=== PATIENT | male | born 1955 | race American Indian/Alaskan Native ===

== ENCOUNTER 2016-08-24 09:25 | Day surgery (SDC) | payer BC, OTHER ==
[~2016-08-24 09:25] MED LIST: Lactated Ringers 1,000 ML IV SCH; Sodium Chloride 0.9% 10 ML Syringe FLUSH PRN; Sodium Chloride 0.9% 2.5 ML Syringe FLUSH PRN
[2016-08-24] MEDS ORDERED: Lidocaine 2% 5 ML SDV ONE (09:46)
[2016-08-24] MEDS ORDERED: Propofol 200 MG/20 ML SDV ONE ×5 (09:46→11:06)
--- NOTE | 2016-08-24 09:46 | PCM.PREANE ---
Preanesthetic Assessment - Anesthesia/Transfusion/Family Hx Anesthesia History: Prior Anesthesia Without Reaction Family History of Anesthesia Reaction: No Transfusion History: No Prior Transfusion(s) Intubation History: Unknown - Review of Systems General: No Symptoms Pulmonary: No Symptoms Cardiovascular: No Symptoms Gastrointestinal: No symptoms Neurological: No Symptoms Other: Reports: None - Physical Assessment Height: 1.83 m Weight: 102.965 kg ASA Class: 2 Mental Status: Alert & Oriented x3 Airway Class: Mallampati = 2 Dentition: Reports: Normal Dentition Thyro-Mental Finger Breadths: 3 Mouth Opening Finger Breadths: 3 ROM/Head Extension: Full Lungs: Clear to auscultation, Normal respiratory effort Cardiovascular: Regular Rate, Regular Rhythm - Allergies Allergies/Adverse Reactions: Allergies Allergy/AdvReac Type Severity Reaction Status Date / Time No Known Allergies Allergy Verified 08/21/16 15:02 - Blood Blood Available: No - Anesthesia Plan Pre-Op Medication Ordered: None - Acknowledgements Anesthesia Type Planned: MAC Pt an Appropriate Candidate for the Planned Anesthesia: Yes Alternatives and Risks of Anesthesia Discussed w Pt/Guardian: Yes Pt/Guardian Understands and Agrees with Anesthesia Plan: Yes PreAnesthesia Questionnaire Other HEENT History: wears glasses Cardiovascular History: Reports: Hypertension Respiratory History: Reports: None Gastrointestinal History: Reports: None Genitourinary History: Reports: None Musculoskeletal History: Reports: Other (See Below) Other Musculoskeletal History: repair of laceration to left knee/leg Neurological History: Reports: None Psychiatric History: Reports: None Endocrine/Metabolic History: Reports: Diabetes, Type II, Obesity/BMI 30+ Hematologic History: Reports: None Immunologic History: Reports: None Oncologic (Cancer) History: Reports: None Dermatologic History: Reports: None - Past Surgical History Head Surgeries/Procedures: Reports: None HEENT Surgical History: Reports: None Cardiovascular Surgical History: Reports: None Respiratory Surgical History: Reports: None GI Surgical History: Reports: Appendectomy, Hernia, Inguinal Male Surgical History: Reports: None Endocrine Surgical History: Reports: None Neurological Surgical History: Reports: None Musculoskeletal Surgical History: Reports: None Oncologic Surgical History: Reports: None Dermatological Surgical History: Reports: None, Other (See Below) (repair of laceration behind/bellow left knee) - SUBSTANCE USE Smoking Status *Q: Never Smoker Recreational Drug Use History: No - HOME MEDS Home Medications: Home Meds Chlorthalidone 25 mg PO DAILY 08/21/16 [History] metFORMIN HCl [Metformin HCl ER] 1,500 mg PO QPM 08/21/16 [History] - CURRENT (IN HOUSE) MEDS Current Meds: Current Medications Lactated Ringer's (Ringers, Lactated) 1,000 mls @ 125 mls/hr IV ASDIRECTED LUIS F Sodium Chloride (Saline Flush) 10 ml FLUSH ASDIRECTED PRN PRN Reason: Keep Vein Open Sodium Chloride (Saline Flush) 2.5 ml FLUSH ASDIRECTED PRN PRN Reason: Keep Vein Open
--- NOTE | 2016-08-24 11:34 | PCM.OPNOTE ---
- General Post-Op/Procedure Note Date of Surgery/Procedure: 08/24/16 Operative Procedure(s): 1 ascending colon polyp, one transverse colon polyp, one sigmoid colon polyp, 4 rectal polyps of which 2 where >1 cm in size Findings: 1 ascending colon polyp, one transverse colon polyp, one sigmoid colon polyp, 4 rectal polyps of which 2 where >1 cm in size Pre Op Diagnosis: positive fecal occult blood test Post-Op Diagnosis: 7 colon polyps Anesthesia Technique: [facility] [place] Surgeon: Krysta Weiner Condition: Good Free Text/Narrative:: Intake & Output 08/23/16 08/24/16 08/24/16 22:59 06:59 14:59 Intake Total 75 Balance 75
--- NOTE | 2016-08-24 11:40 | PCM.POSTAN ---
POST ANESTHESIA ASSESSMENT - MENTAL STATUS Mental Status: alert, oriented - RESPIRATORY Respiratory Status: respiratory rate WNL, airway patent, O2 saturation stable - CARDIOVASCULAR CV Status: pulse rate WNL, blood pressure stable - GASTROINTESTINAL GI Status: no symptoms - POST OP HYDRATION Hydration Status: adequate & stable - OBSERVATIONS Free Text/Narrative:: no anesthesia problems
[2016-08-24 11:56] VITALS: BP 123/72
--- NOTE | 2016-08-24 21:27 | OR ---
SURGEON: EKATERINA TOURE MD DATE OF PROCEDURE: 08/24/2016 PREOPERATIVE DIAGNOSIS: Positive fecal occult blood test. POSTOPERATIVE DIAGNOSIS: Multiple colon polyps. PROCEDURE PERFORMED: Diagnostic colonoscopy. INSTRUMENT USED: Olympus colonoscope. ANESTHESIA: MAC. EXTENT OF EXAM: To the cecum. PREPARATION: Good. LIMITATIONS: None. INDICATIONS: The patient is a 61-year-old male, who presents for screening colonoscopy after he had a positive fecal occult blood test. Because of the positive fecal occult blood test, the patient was [place]. The patient denied any changes in his bowel habits. The decision was made to go forward with the procedure. We discussed the procedure as well as expected perioperative course. We discussed the risks, including bleeding, infection, or damage to surrounding structures, including perforation. The patient verbalized understanding and wishes to proceed. PROCEDURE IN DETAIL: The patient was brought into the endoscopy suite and placed in left lateral decubitus position. A time-out was completed verifying the patient's name, age, date of , allergies, and procedure to be performed. Monitored anesthesia care was induced and continuous oxygen was provided via nasal cannula throughout the procedure. After adequate sedation was achieved, a digital rectal exam was performed. This examination was within normal limits. A well lubricated colonoscope was inserted in the rectum and advanced under direct visualization to the level of cecum. The cecum was identified by both visual and anatomic landmarks. A photograph was taken of the cecal cap as well as with the scope retroflexed within the cecum. The scope was then fully withdrawn while examining the color, texture, anatomy, and integrity of the mucosa from the cecum to the anal canal. The patient has had multiple colonic polyps. There was 1 in the ascending colon, 1 in the transverse colon, 1 in the sigmoid colon and 4 in the rectum. The majority of these were able to be removed using a cold biopsy forceps. The 2 largest polyps were in the rectum and labeled as rectal polyp #2 and 3. Rectal polyp #2 was slightly higher in the rectum, but on a pedunculated stalk. This was removed by a snare biopsy and hot snare forceps. Rectal polyp #3 was equally large and on a stalk albeit shorter stalk. This was removed with a snare as well as in piecemeal fashion via a cold biopsy forceps. The scope was retroflexed within the rectum and a photograph taken of the anal canal opening, which appeared normal. The scope was straightened out and removed from the patient. The cecum to anus time was greater than 30 minutes given the large amount of polyps I needed to remove during this procedure. The patient was transferred to the recovery room in stable condition. ENDOSCOPIC DIAGNOSIS: Multiple colon polyps. RECOMMENDATIONS: Follow up in clinic in 2 weeks. The patient should be on fiber and MiraLax for the next 2 weeks to allow him to have soft bowel movements given the multiple polyps removed in the rectum. The patient may need another followup colonoscopy in 1 year. REMI GUTIÉRREZ /[id number]
== END 2016-08-24 12:13 | disposition home or self-care (01) ==
LOC: MW.SDS 09:25
PROVIDERS: ATTEND Surgery
DX: D12.2 Benign neoplasm of ascending colon (principal); D12.3 Benign neoplasm of transverse colon; D12.5 Benign neoplasm of sigmoid colon; D12.8 Benign neoplasm of rectum; I10 Essential (primary) hypertension; Z90.49 Acquired absence of other specified parts of digestive tract; Z79.84 Long term (current) use of oral hypoglycemic drugs; Z79.899 Other long term (current) drug therapy; Z78.9 Other specified health status; Z72.0 Tobacco use
CPT/HCPCS: 45380; 45385; 88305; J7120; J2704

== ENCOUNTER 2017-12-12 17:21 | Emergency (ER) | payer BC, OTHER ==
--- NOTE | 2017-12-12 17:29 | EDM.PDOC ---
<ChinFlavio - Last Filed: 12/12/17 17:26> ED HPI GENERAL MEDICAL PROBLEM - General Chief Complaint: Genitourinary Problem Stated Complaint: UNKNOWN Time Seen by Provider: 12/12/17 17:24 - History of Present Illness INITIAL COMMENTS - FREE TEXT/NARRATIVE: HISTORY AND PHYSICAL: History of present illness: Patient is 62-year-old male presents with a concern of history of constipation and urinary retention he presents to the ER for Ivan catheter placement and leg bag due to urinary retention this was discovered reportedly on a recent CT scan information was communicated to [facility] and [facility] redirected patient to emergency department here patient states he has been urinating small amounts over a period of days he denies fever chills nausea vomiting or other complaints. Review of systems: As per history of present illness and below otherwise all systems reviewed and negative. Past medical history: As per history of present illness and as reviewed below otherwise noncontributory. Surgical history: As per history of present illness and as reviewed below otherwise noncontributory. Social history: No reported history of drug or alcohol abuse. Family history: As per history of present illness and as reviewed below otherwise noncontributory. Physical exam: HEENT: Atraumatic, normocephalic, pupils reactive, negative for conjunctival pallor or scleral icterus, mucous membranes moist, throat clear, neck supple, nontender, trachea midline. Lungs: Clear to auscultation, breath sounds equal bilaterally, chest nontender. Heart: S1S2, regular, negative for clicks, rubs, or JVD. Abdomen: Soft, nondistended,.Suprapubic fullness and tenderness presumptively from distended bladder Negative for masses or hepatosplenomegaly. Negative for costovertebral tenderness. Pelvis: Stable nontender. Genitourinary: Grossly unremarkable Rectal: Deferred. Extremities: Atraumatic, negative for cords or calf pain. Neurovascular unremarkable. Neuro: Awake, alert, oriented. Cranial nerves II through XII unremarkable. Cerebellum unremarkable. Motor and sensory unremarkable throughout. Exam nonfocal. Diagnostics: CBC CMP UA urine C[employer]S [employer]: Ivan catheter with leg bag Impression: #1 urinary retention Definitive disposition and diagnosis as appropriate pending reevaluation and review of above. - Related Data Allergies Allergy/AdvReac Type Severity Reaction Status Date / Time No Known Allergies Allergy Verified 08/21/16 15:02 Home Meds: Home Meds Chlorthalidone 25 mg PO DAILY 08/21/16 [History] metFORMIN HCl [Metformin HCl ER] 1,500 mg PO QPM 08/21/16 [History] Polyethylene Glycol 3350 [MiraLAX] 17 gm PO BEDTIME #15 packet 08/24/16 [Rx] Psyllium Husk [Fiber] 0.52 gm PO BID #60 capsule 08/24/16 [Rx] Tamsulosin HCl [Flomax] 12/12/17 [History] Past Medical History Other HEENT History: wears glasses Cardiovascular History: Reports: Hypertension Respiratory History: Reports: None Gastrointestinal History: Reports: None Genitourinary History: Reports: None Musculoskeletal History: Reports: Other (See Below) Other Musculoskeletal History: repair of laceration to left knee/leg Neurological History: Reports: None Psychiatric History: Reports: None Endocrine/Metabolic History: Reports: Diabetes, Type II, Obesity/BMI 30+ Hematologic History: Reports: None Immunologic History: Reports: None Oncologic (Cancer) History: Reports: None Dermatologic History: Reports: None - Past Surgical History Head Surgeries/Procedures: Reports: None HEENT Surgical History: Reports: None Cardiovascular Surgical History: Reports: None Respiratory Surgical History: Reports: None GI Surgical History: Reports: Appendectomy, Hernia, Inguinal Male Surgical History: Reports: None Endocrine Surgical History: Reports: None Neurological Surgical History: Reports: None Musculoskeletal Surgical History: Reports: None Oncologic Surgical History: Reports: None Dermatological Surgical History: Reports: None, Other (See Below) Social & Family History - Family History Family Medical History: Noncontributory ED ROS GENERAL - Review of Systems Review Of Systems: ROS reveals no pertinent complaints other than HPI. ED EXAM, GENERAL - Physical Exam Exam: See Below (dictation) Course - Vital Signs Last Recorded V/S: Last Vital Signs Temp 98.2 F 12/12/17 17:25 Pulse 66 12/12/17 17:37 Resp 18 12/12/17 17:25 BP 147/88 H 12/12/17 17:37 Pulse Ox 97 12/12/17 17:25 - Orders/Labs/Meds Orders: Active Orders 24 hr Category Date Time Status Enema [RC] ASDIRECTED Care 12/12/17 19:12 Active Ivan Catheter Insertion [Insert Urinary Catheter] [OM. Care 12/12/17 18:15 Ordered PC] Q24H Urinary Catheter Assessment [RC] ASDIRECTED Care 12/12/17 18:06 Active CULTURE URINE [RM] Stat Lab 12/12/17 18:00 Received Labs: Laboratory Tests 12/12/17 12/12/17 12/12/17 Range/Units 18:00 19:08 19:08 WBC 7.45 (4.0-11.0) K/uL RBC 4.54 (4.50-5.90) M/uL Hgb 13.5 (13.0-17.0) g/dL Hct 38.3 (38.0-50.0) % MCV 84.4 (80.0-98.0) fL MCH 29.7 (27.0-32.0) pg MCHC 35.2 (31.0-37.0) g/dL RDW Std Deviation 41.8 (28.0-62.0) fl RDW Coeff of Lucy 14 (11.0-15.0) % Plt Count 219 (150-400) K/uL MPV 9.00 (7.40-12.00) fL Neut % (Auto) 58.7 (48.0-80.0) % Lymph % (Auto) 22.3 (16.0-40.0) % [place] % (Auto) 12.9 (0.0-15.0) % Eos % (Auto) 5.8 (0.0-7.0) % Baso % (Auto) 0.3 (0.0-1.5) % Neut # (Auto) 4.4 (1.4-5.7) K/uL Lymph # (Auto) 1.7 (0.6-2.4) K/uL [place] # (Auto) 1.0 H (0.0-0.8) K/uL Eos # (Auto) 0.4 (0.0-0.7) K/uL Baso # (Auto) 0.0 (0.0-0.1) K/uL Nucleated RBC % 0.0 /100WBC Nucleated RBCs # 0 K/uL Sodium 135 L (136-148) mmol/L Potassium 4.7 (3.5-5.1) mmol/L Chloride 101 (98-107) mmol/L Carbon Dioxide 24.5 (21.0-32.0) mmol/L BUN 58 H (7.0-18.0) mg/dL Creatinine 5.3 H (0.8-1.3) mg/dL Est Cr Clr Drug Dosing TNP Estimated GFR (MDRD) 11.0 ml/min Glucose 97 (74-106) mg/dL Calcium 8.8 (8.5-10.1) mg/dL Total Bilirubin 0.5 (0.2-1.0) mg/dL AST 17 (15-37) IU/L ALT 40 (14-63) IU/L Alkaline Phosphatase 57 (46-116) U/L Total Protein 7.6 (6.4-8.2) g/dL Albumin 3.7 (3.4-5.0) g/dL Globulin 3.9 H (2.0-3.5) g/dL Albumin/Globulin Ratio 1.0 L (1.3-2.8) Urine Color YELLOW Urine Appearance CLEAR Urine pH 5.5 (5.0-8.0) Ur Specific [place] 1.015 (1.001-1.035) Urine Protein NEGATIVE (NEGATIVE) mg/dL Urine Glucose (UA) NEGATIVE (NEGATIVE) mg/dL Urine Ketones NEGATIVE (NEGATIVE) mg/dL Urine Occult Blood SMALL H (NEGATIVE) Urine Nitrite NEGATIVE (NEGATIVE) Urine Bilirubin NEGATIVE (NEGATIVE) Urine Urobilinogen 0.2 (<2.0) EU/dL Ur Leukocyte Esterase NEGATIVE (NEGATIVE) Urine RBC 2-5 (0-2/HPF) Urine WBC 0-1 (0-5/HPF) Ur Epithelial Cells RARE (NONE-FEW) Urine Bacteria RARE (NEGATIVE) Departure - Departure Disposition: Home, Self-Care 01 Clinical Impression: Urinary retention due to benign prostatic hyperplasia, Acute renal injury, Hydronephrosis due to obstruction of bladder - Discharge Information Referrals: PCP,None [Primary Care Provider] - Forms: ED Department Discharge Additional Instructions: My general discharge The following information is given to patients seen in the emergency department who are being discharged to home. This information is to outline your options for follow-up care. We provide all patients seen in our emergency department with a follow-up referral. The need for follow-up, as well as the timing and circumstances, are variable depending upon the specifics of your emergency department visit. If you don't have a primary care physician on staff, we will provide you with a referral. We always advise you to contact your personal physician following an emergency department visit to inform them of the circumstance of the visit and for follow-up with them and/or the need for any referrals to a consulting specialist. The emergency department will also refer you to a specialist when appropriate. This referral assures that you have the opportunity for follow-up care with a specialist. All of these measure are taken in an effort to provide you with optimal care, which includes your follow-up. Under all circumstances we always encourage you to contact your private physician who remains a resource for coordinating your care. When calling for follow-up care, please make the office aware that this follow-up is from your recent emergency room visit. If for any reason you are refused follow-up, please contact the [facility] Emergency Department at and asked to speak to the emergency department charge nurse. [facility] - Urology [address] [place] [id number] Follow-up with urologist, Dr. Johnson tomorrow. Take medication as prescribed. Return to emergency department if any new or worsening symptoms. - My Orders Last 24 Hours: My Active Orders 12/12/17 19:12 Enema [RC] ASDIRECTED - Assessment/Plan Last 24 Hours: My Active Orders 12/12/17 19:12 Enema [RC] ASDIRECTED <Greg Kirby - Last Filed: 12/12/17 20:25> ED HPI GENERAL MEDICAL PROBLEM - General Source of Information: Reports: Patient - History of Present Illness INITIAL COMMENTS - FREE TEXT/NARRATIVE: Dr. Kirby taking over patient care for Dr. Neely. I've been thoroughly briefed on patient and have reviewed pertinent labs and radiologic findings. I agree with all the above and have examined the patient. CT abdomen and pelvis showed distended urinary bladder measuring 22 x 16 x 13 cm with bilateral hydronephrosis and hydroureters. In addition there was distended colon probably secondary to compression by this distended bladder on the redundant sigmoid with the cecum measuring 7 cm. No kidney stones or pneumatosis. There was an enlarged prostate gland. Secondary to above findings of possible constipation which may be making his urinary retention even worse we did go ahead and give the patient a fleets enema. Patient's last significant bowel movement was some days ago he reports. At this time CBC, CMP, UA/UC and all other rubs labs are pending. CBC, CMP, UA were all unremarkable. We flushed the catheter many times and on discharge there was clean urine flow. In addition Fleet Enema relieve patient's constipation. I did discharge the patient with a leg bag as well as Cipro and talked with Dr. Johnson who will see the patient tomorrow. Instructed patient to return to emergency department if he had any new or worsening symptoms. ED ROS GENERAL - Review of Systems Review Of Systems: ROS reveals no pertinent complaints other than HPI. ED EXAM, GENERAL - Physical Exam Exam: See Below Course - Orders/Labs/Meds Labs: Laboratory Tests 12/12/17 12/12/17 12/12/17 Range/Units 18:00 19:08 19:08 WBC 7.45 (4.0-11.0) K/uL RBC 4.54 (4.50-5.90) M/uL Hgb 13.5 (13.0-17.0) g/dL Hct 38.3 (38.0-50.0) % MCV 84.4 (80.0-98.0) fL MCH 29.7 (27.0-32.0) pg MCHC 35.2 (31.0-37.0) g/dL RDW Std Deviation 41.8 (28.0-62.0) fl RDW Coeff of Lucy 14 (11.0-15.0) % Plt Count 219 (150-400) K/uL MPV 9.00 (7.40-12.00) fL Neut % (Auto) 58.7 (48.0-80.0) % Lymph % (Auto) 22.3 (16.0-40.0) % [place] % (Auto) 12.9 (0.0-15.0) % Eos % (Auto) 5.8 (0.0-7.0) % Baso % (Auto) 0.3 (0.0-1.5) % Neut # (Auto) 4.4 (1.4-5.7) K/uL Lymph # (Auto) 1.7 (0.6-2.4) K/uL [place] # (Auto) 1.0 H (0.0-0.8) K/uL Eos # (Auto) 0.4 (0.0-0.7) K/uL Baso # (Auto) 0.0 (0.0-0.1) K/uL Nucleated RBC % 0.0 /100WBC Nucleated RBCs # 0 K/uL Sodium 135 L (136-148) mmol/L Potassium 4.7 (3.5-5.1) mmol/L Chloride 101 (98-107) mmol/L Carbon Dioxide 24.5 (21.0-32.0) mmol/L BUN 58 H (7.0-18.0) mg/dL Creatinine 5.3 H (0.8-1.3) mg/dL Est Cr Clr Drug Dosing TNP Estimated GFR (MDRD) 11.0 ml/min Glucose 97 (74-106) mg/dL Calcium 8.8 (8.5-10.1) mg/dL Total Bilirubin 0.5 (0.2-1.0) mg/dL AST 17 (15-37) IU/L ALT 40 (14-63) IU/L Alkaline Phosphatase 57 (46-116) U/L Total Protein 7.6 (6.4-8.2) g/dL Albumin 3.7 (3.4-5.0) g/dL Globulin 3.9 H (2.0-3.5) g/dL Albumin/Globulin Ratio 1.0 L (1.3-2.8) Urine Color YELLOW Urine Appearance CLEAR Urine pH 5.5 (5.0-8.0) Ur Specific [place] 1.015 (1.001-1.035) Urine Protein NEGATIVE (NEGATIVE) mg/dL Urine Glucose (UA) NEGATIVE (NEGATIVE) mg/dL Urine Ketones NEGATIVE (NEGATIVE) mg/dL Urine Occult Blood SMALL H (NEGATIVE) Urine Nitrite NEGATIVE (NEGATIVE) Urine Bilirubin NEGATIVE (NEGATIVE) Urine Urobilinogen 0.2 (<2.0) EU/dL Ur Leukocyte Esterase NEGATIVE (NEGATIVE) Urine RBC 2-5 (0-2/HPF) Urine WBC 0-1 (0-5/HPF) Ur Epithelial Cells RARE (NONE-FEW) Urine Bacteria RARE (NEGATIVE) Departure - Departure Time of Disposition: 20:24 Condition: Good
[2017-12-12 19:31] LABS: CHLORIDE,CL 101 mmol/L (98-107); SODIUM,NA 135 mmol/L (136-148)
[2017-12-12 20:26] VITALS: BP 156/89
== END 2017-12-12 20:40 | disposition home or self-care (01) ==
LOC: MW.ED 17:21
DX: N40.1 Benign prostatic hyperplasia with lower urinary tract symptoms (principal); R33.8 Other retention of urine; N17.9 Acute kidney failure, unspecified; N13.30 Unspecified hydronephrosis; E11.9 Type 2 diabetes mellitus without complications; I10 Essential (primary) hypertension; Z79.84 Long term (current) use of oral hypoglycemic drugs; Z79.899 Other long term (current) drug therapy
CPT/HCPCS: 36415; 80053; 81001; 85025; 87086; 99283